=== PATIENT | male | born 1940 | race African-American/Black ===

== ENCOUNTER 2018-03-23 15:46 | Inpatient (IN) | payer OTHER ==
[2018-03-23 16:55] VITALS: BMI 37.1
--- NOTE | 2018-03-23 21:47 | HP ---
CIWA Score - Admission Criteria [facility] Guidelines: Admission for Medically Managed Detox: Requires at least one of the followin. CIWA greater than 12 2. Seizures within the past 24 hours 3. Delirium tremens within the past 24 hours 4. Hallucinations within the past 24 hours 5. Acute intervention needed for co occurring medical disorder 6. Acute intervention needed for co occurring psychiatric disorder 7. Severe withdrawal that cannot be handled at a lower level of care (continued vomiting, continued diarrhea, abnormal vital signs) requiring intravenous medication and/or fluids 8. Admission ROS S - HPI Chief Complaint: SEEKING REHAB FOR TRAMADOL DEPENDENCE AFTER 5 DAY HOSPITAL STAY Allergies/Adverse Reactions: Allergies Allergy/AdvReac Type Severity Reaction Status Date / Time No Known Allergies Allergy Verified 03/23/18 18:57 History of Present Illness: 77 Y.O. MALE WITH HX/O OPIOID DEPENDENCE HERE FOR OPIOID DEPENDENCE. CLIENT IS REFERRED BY [facility] AFTER BEING HOSPITALIZED FOR C/O BODY ACHES. CLIENT WAS BEING PRESCRIBED TRAMADOL FOR PAIN MGMT BUT WAS DC DURING HOSPITAL STAY FOR DEPENDENCE. HE WAS HOSPITALIZED FROM03/18/18-03/23/2018. HE IS KNOWN TO THIS PROGRAM . LAST HERE ABOUT 2 YEARS AGO. REPORTS LONGEST CLEAN TIME 2 YEARS. RELAPSING 6 MONTHS AGO. DENIES HX/O DRUG OVERDOSE, SI/HI, AVH, SEIZURE D/O. CURRENTLY LIVES ALONE IN AN APT, RETIRED, DENIES LEGALS. PMHX- COPD ON PRN HOME O2, HTN, DM, DVT/PE ON ELIQUIS, CHRONIC PAIN, HX/O RSV INFECTION PSYCH- DENIES Exam Limitations: Physical Impairment ([place] WITH A CANE DUE TO UNSTEADY GAIT) - Ebola screening Have you traveled outside of the country in the last 21 days: No Have you had contact with anyone from an Ebola affected area: No Have you been sick,other than usual withdrawal symptoms: No Do you have a fever: No - Review of Systems Constitutional: No Symptoms Reported EENT: reports: Dental Problems (DENTAL IMPLANTS) Respiratory: reports: No Symptoms reported Cardiac: reports: No Symptoms Reported GI: reports: Poor Appetite : reports: No Symptoms Reported Musculoskeletal: reports: Back Pain, Joint Pain Integumentary: reports: Other (DRY SKIN TO LLE) Neuro: reports: Weakness (BLE) Endocrine: reports: Other (HX/O DM) Hematology: reports: Blood Clots Psychiatric: reports: No Sypmtoms Reported, Orientated x3 Other Systems: Reviewed and Negative Patient History - Patient Medical History Hx Anemia: No Hx Asthma: No Hx Chronic Obstructive Pulmonary Disease (COPD): Yes (PRN O2) Hx Cancer: No Hx Cardiac Disorders: No Hx Congestive Heart Failure: No Hx Hypertension: Yes Hx Hypercholesterolemia: No Hx Seizures: No Hx Dementia: No Hx Diabetes: Yes Hx Gastrointestinal Disorders: No Hx Liver Disease: No Hx Genitourinary Disorders: No Hx Sexually Transmitted Disorders: No Hx Renal Disease (ESRD): No Hx Thyroid Disease: No Hx Human Immunodeficiency Virus (HIV): No Hx Hepatitis C: No Hx Depression: No Hx Suicide Attempt: No Hx Bipolar Disorder: No Hx Schizophrenia: No Other Medical History: DVT/PE ON ELIQUIS - Patient Surgical History Past Surgical History: Yes Hx Abdominal Surgery: Yes (, cholecystectomy ) Hx Cholecystectomy: Yes Hx Orthopedic Surgery: Yes (Bilateral hip replacements R in 2013 L in 2014) Anesthesia Reaction: No - PPD History Previous Implant?: Yes Documented Results: Negative w/proof Implanted On Prior R Admission?: Yes Date: 04/25/15 Results: 0MM PPD to be Administered?: Yes - Smoking Cessation Smoking history: Former smoker Have you smoked in the past 12 months: Yes Aproximately how many cigarettes per day: 20 If you are a former smoker, when did you quit?: 8/15 Cigars Per Day: 0 Hx Chewing Tobacco Use: No Initiated information on smoking cessation: No - Substance & Tx. History Hx Alcohol Use: Yes Hx Substance Use: Yes Substance Use Type: Opiates (TRAMADOL) Hx Substance Use Treatment: Yes ([facility]) - Substances Abused TRAMADOL Route: Oral Frequency: Daily Amount used: 150MG Age of first use: 76 Date of Last Use: 03/16/18 PERCOCET Route: Oral Frequency: Daily Amount used: 2 5/325MG Age of first use: 76 Date of Last Use: 09/26/17 Family Disease History - Family Disease History Family Disease History: Diabetes: Grandparent, Respiratory: Mother () Admission Physical Exam [facility] - Vital Signs Vital Signs: Vital Signs - 24 hr 03/23/18 16:52 Temperature 98.0 F Pulse Rate 111 H Respiratory 18 Rate Blood Pressure 129/71 - Physical General Appearance: Yes: No Apparent Distress, Appropriately Dressed, Obese HEENTM: Yes: EOMI, Normocephalic, Normal Voice, REZA, Pharynx Normal, Other ( MISSING TEETH) Respiratory: Yes: Chest Non-Tender, Lungs Clear, Normal Breath Sounds, No Respiratory Distress, No Accessory Muscle Use Neck: Yes: No masses,lesions,Nodules, Supple, Trachea in good position Breast: Yes: Breast Exam Deferred Cardiology: Yes: Regular Rhythm, Regular Rate, S1, S2 Abdominal: Yes: Normal Bowel Sounds, Non Tender, Soft, Protuberent Genitourinary: Yes: Other (NO C/O) Back: Yes: Normal Inspection Musculoskeletal: Yes: full range of Motion, Other (AMBULATES WITH CAN E DUE TO UNSTEADY GAIT) Extremities: Yes: Non-Tender, Other Neurological: Yes: Fully Oriented, Alert, Motor Strength 5/5 Integumentary: Yes: Dry, Warm, Other (LLE WITH HEALING ABRASION ALSO DRY HYPERPIGMENTATION OF SKIN) Lymphatic: Yes: Within Normal Limits - Diagnostic (1) Uncomplicated opioid dependence Current Visit: Yes Status: Chronic (2) Morbidly obese Current Visit: Yes Status: Chronic (3) COPD (chronic obstructive pulmonary disease) Current Visit: Yes Status: Chronic Qualifiers: COPD type: unspecified COPD Qualified Code(s): J44.9 - Chronic obstructive pulmonary disease, unspecified (4) HTN (hypertension) Current Visit: Yes Status: Chronic Qualifiers: Hypertension type: essential hypertension Qualified Code(s): I10 - Essential (primary) hypertension (5) History of DVT (deep vein thrombosis) Current Visit: Yes Status: Chronic (6) Unsteady gait Current Visit: Yes Status: Chronic (7) Ambulates without assistive device Current Visit: Yes Status: Chronic (8) DM (diabetes mellitus) Current Visit: Yes Status: Chronic Qualifiers: Diabetes mellitus type: type 2 Cleared for Admission [facility] - Detox or Rehab Detox Regimen/Protocol: Not Applicable Claeared for Rehab Admission: Yes [facility] Breath Alcohol Content Breath Alcohol Content: 0 Urine Drug Screen - Results Drug Screen Negative: Yes Inpatient Rehab Admission - Initial Determination Are CD services needed?: Yes Free of communicable disease: Yes Not in need of hospitalization: Yes - Rehab Admission Criteria Previous failed treatment: Yes Poor recovery environment: Yes Comorbidities: Yes Lacks judgement: No Patient is meeting Inpatient Rehab admission criteria:: Yes
[2018-03-23] MEDS ORDERED: MAGNESIUM HYDROX 2400MG/30ML ORAL SUSPENSION 30 ML CUP PO PRN (22:08)
[2018-03-23] MEDS ORDERED: guaiFENesin/D-METHORPHAN HB 10 ML UNIT-DOSE CUPS PO PRN (22:08)
[2018-03-23] MEDS ORDERED: hydrOXYzine PAMOATE 50 MG CAPSULE (FP) PO PRN (22:08)
[2018-03-23] MEDS ORDERED: ACETAMINOPHEN 325 MG TABLET (FP) PO PRN (22:08)
[2018-03-23] MEDS ORDERED: MAGNESIUM CITRATE 300 ML BOTTLE PO PRN (22:08)
[2018-03-23] MEDS ORDERED: MENTHOL/PHENOL 1 EACH UD MM PRN (22:08)
[2018-03-23] MEDS ORDERED: LOPERAMIDE HCL 2 MG CAPSULE PO PRN (22:08)
[2018-03-23] MEDS ORDERED: P-EPHED 60MG/TRIPROLIDI 2.5MG TABLET PO PRN (22:08)
[2018-03-24] MEDS: IBUPROFEN 400 MG TABLET (FP) PO PRN ×2 (01:04→09:42)
[2018-03-24] MEDS: GABAPENTIN 400 MG CAPSULE (FP) PO SCH ×3 (06:37→21:02)
[2018-03-24] MEDS: MAG HYDROX/AL HYDROX/SIMETH 30 ML UNIT-DOSE CUP PO PRN (06:38)
[2018-03-24] MEDS: metFORMIN HCL 500 MG TABLET (FP) PO SCH (07:32)
[2018-03-24] MEDS: PRENATAL VITAMINS W/ FOLIC ACID TABLET (FP) PO SCH (09:35)
[2018-03-24] MEDS: APIXABAN 5 MG TABLET PO SCH ×2 (09:35→21:02)
[2018-03-24] MEDS: FUROSEMIDE 40 MG TABLET (FP) PO SCH (09:35)
[2018-03-24] MEDS: amLODIPine BESYLATE 5 MG TABLET (FP) PO SCH (09:36)
[2018-03-24] MEDS: BUDESONIDE/FORMETEROL FUMARATE 160/4.5 mcg INHALER IH SCH ×2 (09:38→21:02)
[2018-03-24] MEDS ORDERED: DULoxetine HCL 60 MG CAPSULE.DR PO SCH (10:00)
[2018-03-24 11:08] LABS: HEMOGLOBIN 12.9 GM/dL (11.7-16.9); MCH 28.7 pg (25.7-33.7); MCHC 33.1 g/dl (32.0-35.9); MEAN CELL VOLUME 86.9 fl (80-96); MEAN PLT VOLUME 7.9 fl (7.5-11.1); PLATELET COUNT 265 K/MM3 (134-434); RBC 4.49 M/mm3 (4.00-5.60); WHITE BLOOD COUNT 9.4 K/mm3 (4.0-10.0)
[2018-03-24 11:12] LABS: URINE APPEARANCE CLEAR; URINE BILIRUBIN NEGATIVE (<2.0 mg/dL); URINE COLOR YELLOW; URINE GLUCOSE (UA) NEGATIVE (NEGATIVE); URINE KETONE NEGATIVE (NEGATIVE); URINE LEUK ESTERASE NEGATIVE (NEGATIVE); URINE NITRITE NEGATIVE (NEGATIVE); URINE PROTEIN NEGATIVE (NEGATIVE); URINE UROBILINOGEN NEGATIVE mg/dL (0.2-1.0)
[2018-03-24] MEDS: DULOXETINE HCL PO SCH (11:16)
[2018-03-24] MEDS: ALBUTEROL SO4 8 GM HFA INHALER IH SCH (11:17)
[2018-03-24 11:28] LABS: ALBUMIN 3.4 g/dl (3.4-5.0); ALK PHOS 94 U/L (45-117); ANION GAP 6 MMOL/L (8-16); BILIRUBIN,TOTAL 0.5 mg/dL (0.2-1); BLOOD UREA NITROGEN 19 mg/dL (7-18); CALCIUM 8.6 mg/dL (8.5-10.1); CHLORIDE 104 mmol/L (98-107); CO2 29 mmol/L (21-32); CREATININE 1.2 mg/dL (0.55-1.3); GLUCOSE,RANDOM 113 mg/dL (74-106); POTASSIUM 4.1 mmol/L (3.5-5.1); SGOT/AST 13 U/L (15-37); SGPT/ALT 18 U/L (13-61); SODIUM 139 mmol/L (136-145); TOT PROT 7.2 g/dl (6.4-8.2)
--- NOTE | 2018-03-24 12:39 | PN ---
[facility] Progress Note Note: patient requests symethicon for gas as maalox not effective - same Rx, monitor for effect
[2018-03-24] MEDS: SIMETHICONE 80 MG TAB.CHEW (FP) PO PRN (14:38)
[2018-03-24] MEDS: THIAMINE HCL 100 MG TABLET (FP) PO SCH (21:02)
[2018-03-25] MEDS: GABAPENTIN 400 MG CAPSULE (FP) PO SCH ×3 (06:42→21:03)
[2018-03-25] MEDS: metFORMIN HCL 500 MG TABLET (FP) PO SCH (06:42)
[2018-03-25] MEDS: SIMETHICONE 80 MG TAB.CHEW (FP) PO PRN ×3 (06:43→21:04)
[2018-03-25] MEDS: amLODIPine BESYLATE 5 MG TABLET (FP) PO SCH (09:35)
[2018-03-25] MEDS: FUROSEMIDE 40 MG TABLET (FP) PO SCH (09:35)
[2018-03-25] MEDS: APIXABAN 5 MG TABLET PO SCH ×2 (09:36→21:03)
[2018-03-25] MEDS: DULOXETINE HCL PO SCH (09:36)
[2018-03-25] MEDS: PRENATAL VITAMINS W/ FOLIC ACID TABLET (FP) PO SCH (09:37)
[2018-03-25] MEDS: BUDESONIDE/FORMETEROL FUMARATE 160/4.5 mcg INHALER IH SCH ×2 (09:38→21:05)
[2018-03-25] MEDS: ALBUTEROL SO4 8 GM HFA INHALER IH SCH (09:39)
[2018-03-25] MEDS: IBUPROFEN 400 MG TABLET (FP) PO PRN (21:03)
[2018-03-25] MEDS: THIAMINE HCL 100 MG TABLET (FP) PO SCH (21:03)
[2018-03-26] MEDS: GABAPENTIN 400 MG CAPSULE (FP) PO SCH ×3 (06:26→21:05)
[2018-03-26] MEDS: IBUPROFEN 400 MG TABLET (FP) PO PRN ×2 (06:26→21:06)
[2018-03-26] MEDS: metFORMIN HCL 500 MG TABLET (FP) PO SCH (06:26)
[2018-03-26] MEDS: MAG HYDROX/AL HYDROX/SIMETH 30 ML UNIT-DOSE CUP PO PRN (06:27)
[2018-03-26] MEDS: SIMETHICONE 80 MG TAB.CHEW (FP) PO PRN ×3 (06:28→21:08)
[2018-03-26] MEDS: APIXABAN 5 MG TABLET PO SCH ×2 (10:00→21:05)
[2018-03-26] MEDS: amLODIPine BESYLATE 5 MG TABLET (FP) PO SCH (10:00)
[2018-03-26] MEDS: PRENATAL VITAMINS W/ FOLIC ACID TABLET (FP) PO SCH (10:01)
[2018-03-26] MEDS: FUROSEMIDE 40 MG TABLET (FP) PO SCH (10:01)
[2018-03-26] MEDS: ALBUTEROL SO4 8 GM HFA INHALER IH SCH (10:04)
[2018-03-26] MEDS: BUDESONIDE/FORMETEROL FUMARATE 160/4.5 mcg INHALER IH SCH ×2 (10:04→21:07)
[2018-03-26] MEDS: DULOXETINE HCL PO SCH (11:32)
[2018-03-26] MEDS: THIAMINE HCL 100 MG TABLET (FP) PO SCH (21:05)
[2018-03-26] MEDS: MELATONIN 5 MG TABLETS PO PRN (21:06)
[2018-03-27] MEDS: metFORMIN HCL 500 MG TABLET (FP) PO SCH (06:15)
[2018-03-27] MEDS: SIMETHICONE 80 MG TAB.CHEW (FP) PO PRN ×2 (06:17→21:48)
[2018-03-27] MEDS: GABAPENTIN 400 MG CAPSULE (FP) PO SCH ×3 (06:18→21:49)
[2018-03-27] MEDS: MAG HYDROX/AL HYDROX/SIMETH 30 ML UNIT-DOSE CUP PO PRN (06:18)
[2018-03-27] MEDS: IBUPROFEN 400 MG TABLET (FP) PO PRN (06:20)
[2018-03-27] MEDS: PRENATAL VITAMINS W/ FOLIC ACID TABLET (FP) PO SCH (10:11)
[2018-03-27] MEDS: amLODIPine BESYLATE 5 MG TABLET (FP) PO SCH (10:12)
[2018-03-27] MEDS: APIXABAN 5 MG TABLET PO SCH ×2 (10:12→21:48)
[2018-03-27] MEDS: FUROSEMIDE 40 MG TABLET (FP) PO SCH (10:13)
[2018-03-27] MEDS: BUDESONIDE/FORMETEROL FUMARATE 160/4.5 mcg INHALER IH SCH ×2 (10:13→21:50)
[2018-03-27] MEDS: ALBUTEROL SO4 8 GM HFA INHALER IH SCH (10:16)
[2018-03-27] MEDS: DULOXETINE HCL PO SCH (10:18)
--- NOTE | 2018-03-27 12:35 | PN ---
[facility] Progress Note Note: PT C/O GENERALIZED BODY PAIN AND KNEE PAIN BUT DENIES ARTHRITIS(SAYS "I HAVE CLEAN KNEES IT'S DUE TO MY WT BEARING DOWN ON MY KNEES"). PT REPORTS JEAN CARLOS. HIP REPLACEMENT IN 2018 AND DVT LEFT LEG A YEAR AGO. DENIES BACK PAIN. STATES HE HAS A PMD, DR. LENNIE SHERMAN ON [place], [place]. PT OOB AMBULATING WITH CANE. Vital Signs 03/27/18 03/27/18 06:42 10:00 Temperature 97.3 F L Pulse Rate 85 92 H Respiratory 19 Rate Blood Pressure 149/78 124/63 Laboratory Tests 03/23/18 03/24/18 03/24/18 23:40 06:39 07:50 WBC 9.4 RBC 4.49 Hgb 12.9 Hct 39.0 MCV 86.9 MCH 28.7 D MCHC 33.1 RDW 17.0 H Plt Count 265 MPV 7.9 Sodium Potassium Chloride Carbon Dioxide Anion Gap BUN Creatinine Creat Clearance w eGFR POC Glucometer 87 111 Random Glucose Calcium Total Bilirubin AST ALT Alkaline Phosphatase Total Protein Albumin Urine Color Urine Appearance Urine pH Ur Specific [place] Urine Protein Urine Glucose (UA) Urine Ketones Urine Blood Urine Nitrite Urine Bilirubin Urine Urobilinogen Ur Leukocyte Esterase RPR Titer 03/24/18 03/24/18 03/24/18 07:50 07:50 08:50 WBC RBC Hgb Hct MCV MCH MCHC RDW Plt Count MPV Sodium 139 Potassium 4.1 Chloride 104 Carbon Dioxide 29 Anion Gap 6 L BUN 19 H Creatinine 1.2 Creat Clearance w eGFR 58.86 POC Glucometer Random Glucose 113 H Calcium 8.6 Total Bilirubin 0.5 AST 13 L ALT 18 Alkaline Phosphatase 94 Total Protein 7.2 Albumin 3.4 Urine Color Yellow Urine Appearance Clear Urine pH 6.0 Ur Specific [place] 1.023 Urine Protein Negative Urine Glucose (UA) Negative Urine Ketones Negative Urine Blood Negative Urine Nitrite Negative Urine Bilirubin Negative Urine Urobilinogen Negative Ur Leukocyte Esterase Negative RPR Titer Nonreactive 03/25/18 03/26/18 03/27/18 06:41 06:24 06:15 WBC RBC Hgb Hct MCV MCH MCHC RDW Plt Count MPV Sodium Potassium Chloride Carbon Dioxide Anion Gap BUN Creatinine Creat Clearance w eGFR POC Glucometer 98 129 98 Random Glucose Calcium Total Bilirubin AST ALT Alkaline Phosphatase Total Protein Albumin Urine Color Urine Appearance Urine pH Ur Specific [place] Urine Protein Urine Glucose (UA) Urine Ketones Urine Blood Urine Nitrite Urine Bilirubin Urine Urobilinogen Ur Leukocyte Esterase RPR Titer NAD PLAN:D/C IBUPROFEN FLEXERIL 10 MG PO TID PRN
[2018-03-27] MEDS: CYCLOBENZAPRINE HCL 10 MG TABLET (FP) PO PRN (14:47)
[2018-03-27] MEDS: THIAMINE HCL 100 MG TABLET (FP) PO SCH (21:48)
[2018-03-27] MEDS: MELATONIN 5 MG TABLETS PO PRN (21:49)
[2018-03-28] MEDS: SIMETHICONE 80 MG TAB.CHEW (FP) PO PRN ×3 (06:40→21:53)
[2018-03-28] MEDS: CYCLOBENZAPRINE HCL 10 MG TABLET (FP) PO PRN ×2 (06:40→21:51)
[2018-03-28] MEDS: GABAPENTIN 400 MG CAPSULE (FP) PO SCH ×3 (06:40→21:50)
[2018-03-28] MEDS: metFORMIN HCL 500 MG TABLET (FP) PO SCH (06:43)
[2018-03-28] MEDS: amLODIPine BESYLATE 5 MG TABLET (FP) PO SCH (10:55)
[2018-03-28] MEDS: PRENATAL VITAMINS W/ FOLIC ACID TABLET (FP) PO SCH (10:55)
[2018-03-28] MEDS: APIXABAN 5 MG TABLET PO SCH ×2 (10:56→21:50)
[2018-03-28] MEDS: FUROSEMIDE 40 MG TABLET (FP) PO SCH (10:56)
[2018-03-28] MEDS: BUDESONIDE/FORMETEROL FUMARATE 160/4.5 mcg INHALER IH SCH ×2 (10:57→21:51)
[2018-03-28] MEDS: ALBUTEROL SO4 8 GM HFA INHALER IH SCH (10:58)
[2018-03-28] MEDS: DULOXETINE HCL PO SCH (10:58)
[2018-03-28] MEDS: AMMONIUM LACTATE 12% LOTION 225 GM BOTTLE TP SCH (14:27)
[2018-03-28] MEDS: THIAMINE HCL 100 MG TABLET (FP) PO SCH (21:50)
[2018-03-29] MEDS: CYCLOBENZAPRINE HCL 10 MG TABLET (FP) PO PRN (06:56)
[2018-03-29] MEDS: SIMETHICONE 80 MG TAB.CHEW (FP) PO PRN (06:56)
[2018-03-29] MEDS: metFORMIN HCL 500 MG TABLET (FP) PO SCH (06:56)
[2018-03-29] MEDS: GABAPENTIN 400 MG CAPSULE (FP) PO SCH ×3 (06:56→21:46)
[2018-03-29] MEDS: APIXABAN 5 MG TABLET PO SCH ×2 (10:23→21:46)
[2018-03-29] MEDS: PRENATAL VITAMINS W/ FOLIC ACID TABLET (FP) PO SCH (10:23)
[2018-03-29] MEDS: BUDESONIDE/FORMETEROL FUMARATE 160/4.5 mcg INHALER IH SCH ×2 (10:24→21:46)
[2018-03-29] MEDS: amLODIPine BESYLATE 5 MG TABLET (FP) PO SCH (10:24)
[2018-03-29] MEDS: FUROSEMIDE 40 MG TABLET (FP) PO SCH (10:24)
[2018-03-29] MEDS: DULOXETINE HCL PO SCH (10:25)
[2018-03-29] MEDS: ALBUTEROL SO4 8 GM HFA INHALER IH SCH (10:25)
[2018-03-29] MEDS: AMMONIUM LACTATE 12% LOTION 225 GM BOTTLE TP SCH (10:26)
[2018-03-29] MEDS: MELATONIN 5 MG TABLETS PO PRN (21:45)
[2018-03-29] MEDS: THIAMINE HCL 100 MG TABLET (FP) PO SCH (21:46)
[2018-03-30] MEDS: metFORMIN HCL 500 MG TABLET (FP) PO SCH (06:26)
[2018-03-30] MEDS: SIMETHICONE 80 MG TAB.CHEW (FP) PO PRN ×2 (06:26→21:46)
[2018-03-30] MEDS: CYCLOBENZAPRINE HCL 10 MG TABLET (FP) PO PRN ×2 (06:26→21:46)
[2018-03-30] MEDS: GABAPENTIN 400 MG CAPSULE (FP) PO SCH ×3 (06:26→21:43)
[2018-03-30] MEDS: PRENATAL VITAMINS W/ FOLIC ACID TABLET (FP) PO SCH (10:34)
[2018-03-30] MEDS: amLODIPine BESYLATE 5 MG TABLET (FP) PO SCH (10:34)
[2018-03-30] MEDS: APIXABAN 5 MG TABLET PO SCH ×2 (10:34→21:43)
[2018-03-30] MEDS: FUROSEMIDE 40 MG TABLET (FP) PO SCH (10:35)
[2018-03-30] MEDS: BUDESONIDE/FORMETEROL FUMARATE 160/4.5 mcg INHALER IH SCH ×2 (10:36→21:46)
[2018-03-30] MEDS: ALBUTEROL SO4 8 GM HFA INHALER IH SCH (10:37)
[2018-03-30] MEDS: DULOXETINE HCL PO SCH (10:38)
[2018-03-30] MEDS: AMMONIUM LACTATE 12% LOTION 225 GM BOTTLE TP SCH (10:38)
[2018-03-30] MEDS: THIAMINE HCL 100 MG TABLET (FP) PO SCH (21:44)
[2018-03-30] MEDS: MELATONIN 5 MG TABLETS PO PRN (21:54)
[2018-03-31] MEDS: GABAPENTIN 400 MG CAPSULE (FP) PO SCH ×3 (06:30→21:41)
[2018-03-31] MEDS: metFORMIN HCL 500 MG TABLET (FP) PO SCH (06:30)
[2018-03-31] MEDS: SIMETHICONE 80 MG TAB.CHEW (FP) PO PRN ×2 (06:30→21:41)
[2018-03-31] MEDS: amLODIPine BESYLATE 5 MG TABLET (FP) PO SCH (10:32)
[2018-03-31] MEDS: BUDESONIDE/FORMETEROL FUMARATE 160/4.5 mcg INHALER IH SCH ×2 (10:32→21:42)
[2018-03-31] MEDS: PRENATAL VITAMINS W/ FOLIC ACID TABLET (FP) PO SCH (10:32)
[2018-03-31] MEDS: FUROSEMIDE 40 MG TABLET (FP) PO SCH (10:32)
[2018-03-31] MEDS: APIXABAN 5 MG TABLET PO SCH ×2 (10:32→21:41)
[2018-03-31] MEDS: DULOXETINE HCL PO SCH (10:35)
[2018-03-31] MEDS: AMMONIUM LACTATE 12% LOTION 225 GM BOTTLE TP SCH (10:35)
[2018-03-31] MEDS: ALBUTEROL SO4 8 GM HFA INHALER IH SCH (10:36)
[2018-03-31] MEDS: MELATONIN 5 MG TABLETS PO PRN (21:41)
[2018-03-31] MEDS: THIAMINE HCL 100 MG TABLET (FP) PO SCH (21:41)
[2018-04-01] MEDS: metFORMIN HCL 500 MG TABLET (FP) PO SCH (06:33)
[2018-04-01] MEDS: SIMETHICONE 80 MG TAB.CHEW (FP) PO PRN ×2 (06:33→21:37)
[2018-04-01] MEDS: GABAPENTIN 400 MG CAPSULE (FP) PO SCH ×3 (06:33→21:37)
[2018-04-01] MEDS: BUDESONIDE/FORMETEROL FUMARATE 160/4.5 mcg INHALER IH SCH ×2 (10:03→21:38)
[2018-04-01] MEDS: PRENATAL VITAMINS W/ FOLIC ACID TABLET (FP) PO SCH (10:03)
[2018-04-01] MEDS: AMMONIUM LACTATE 12% LOTION 225 GM BOTTLE TP SCH (10:04)
[2018-04-01] MEDS: APIXABAN 5 MG TABLET PO SCH ×2 (10:04→21:37)
[2018-04-01] MEDS: amLODIPine BESYLATE 5 MG TABLET (FP) PO SCH (10:04)
[2018-04-01] MEDS: DULOXETINE HCL PO SCH (10:04)
[2018-04-01] MEDS: FUROSEMIDE 40 MG TABLET (FP) PO SCH (10:04)
[2018-04-01] MEDS: ALBUTEROL SO4 8 GM HFA INHALER IH SCH (10:05)
[2018-04-01] MEDS: THIAMINE HCL 100 MG TABLET (FP) PO SCH (21:36)
[2018-04-01] MEDS: MELATONIN 5 MG TABLETS PO PRN (21:36)
[2018-04-01] MEDS: MAG HYDROX/AL HYDROX/SIMETH 30 ML UNIT-DOSE CUP PO PRN (21:38)
[2018-04-02] MEDS: GABAPENTIN 400 MG CAPSULE (FP) PO SCH ×3 (06:33→21:41)
[2018-04-02] MEDS: metFORMIN HCL 500 MG TABLET (FP) PO SCH (06:34)
[2018-04-02] MEDS: amLODIPine BESYLATE 5 MG TABLET (FP) PO SCH (10:34)
[2018-04-02] MEDS: APIXABAN 5 MG TABLET PO SCH ×2 (10:34→21:41)
[2018-04-02] MEDS: PRENATAL VITAMINS W/ FOLIC ACID TABLET (FP) PO SCH (10:34)
[2018-04-02] MEDS: FUROSEMIDE 40 MG TABLET (FP) PO SCH (10:37)
[2018-04-02] MEDS: AMMONIUM LACTATE 12% LOTION 225 GM BOTTLE TP SCH (10:38)
[2018-04-02] MEDS: ALBUTEROL SO4 8 GM HFA INHALER IH SCH (10:39)
[2018-04-02] MEDS: BUDESONIDE/FORMETEROL FUMARATE 160/4.5 mcg INHALER IH SCH ×2 (10:39→21:44)
[2018-04-02] MEDS: SIMETHICONE 80 MG TAB.CHEW (FP) PO PRN (10:40)
[2018-04-02] MEDS: DULOXETINE HCL PO SCH (12:08)
[2018-04-02] MEDS: THIAMINE HCL 100 MG TABLET (FP) PO SCH (21:41)
[2018-04-02] MEDS: MELATONIN 5 MG TABLETS PO PRN (21:44)
[2018-04-02] MEDS: CYCLOBENZAPRINE HCL 10 MG TABLET (FP) PO PRN (21:44)
[2018-04-03] MEDS: metFORMIN HCL 500 MG TABLET (FP) PO SCH (06:27)
[2018-04-03] MEDS: GABAPENTIN 400 MG CAPSULE (FP) PO SCH (06:27)
[2018-04-03] MEDS: SIMETHICONE 80 MG TAB.CHEW (FP) PO PRN (06:27)
[2018-04-03 06:59] VITALS: BP 140/64; PULSE 84; TEMP 98
[2018-04-03] MEDS: APIXABAN 5 MG TABLET PO SCH (09:28)
[2018-04-03] MEDS: DULOXETINE HCL PO SCH (09:28)
[2018-04-03] MEDS: BUDESONIDE/FORMETEROL FUMARATE 160/4.5 mcg INHALER IH SCH (09:28)
[2018-04-03] MEDS: AMMONIUM LACTATE 12% LOTION 225 GM BOTTLE TP SCH (09:28)
[2018-04-03] MEDS: ALBUTEROL SO4 8 GM HFA INHALER IH SCH (09:29)
[2018-04-03] MEDS: PRENATAL VITAMINS W/ FOLIC ACID TABLET (FP) PO SCH (09:29)
[2018-04-03] MEDS: amLODIPine BESYLATE 5 MG TABLET (FP) PO SCH (09:29)
[2018-04-03] MEDS: FUROSEMIDE 40 MG TABLET (FP) PO SCH (09:29)
--- NOTE | 2018-04-03 15:35 | PN ---
S Progress Note Note: REHAB DISCHARGE NOTE; PT COMPLETED REHAB TODAY. PT HAS BEEN REFERRED TO AFTERCARE AT [facility] OPD; DR FELIX MARMOLEJO AT [address] [place] [address] FOR ORTHOPEDICS; AND PAIN MANAGEMENT AT [facility] AO [address] [place] [address] WELL PHYSICAL THERAPY AT SAME LOCATION. PT REPORTS HE HAS ALL HIS MEDICATIONS AT HOME AND NEEDS [facility] RX FOR CYMBALTA FOR 2 WEEKS TILL HE GETS TO HIS PCP. RX CYMBALTA 90 MG PO DAILY #14 ELECTRONICALLY SENT TO PATIENT'S PHARMACY FOR [facility]. Vital Signs - 24 hr 04/03/18 04/03/18 04/03/18 00:30 03:30 06:58 Temperature 98.0 F Pulse Rate 84 Respiratory 18 18 20 Rate Blood Pressure 140/64 Laboratory Tests 03/23/18 03/24/18 03/24/18 23:40 06:39 07:50 WBC 9.4 RBC 4.49 Hgb 12.9 Hct 39.0 MCV 86.9 MCH 28.7 D MCHC 33.1 RDW 17.0 H Plt Count 265 MPV 7.9 Sodium Potassium Chloride Carbon Dioxide Anion Gap BUN Creatinine Creat Clearance w eGFR POC Glucometer 87 111 Random Glucose Calcium Total Bilirubin AST ALT Alkaline Phosphatase Total Protein Albumin Urine Color Urine Appearance Urine pH Ur Specific [place] Urine Protein Urine Glucose (UA) Urine Ketones Urine Blood Urine Nitrite Urine Bilirubin Urine Urobilinogen Ur Leukocyte Esterase RPR Titer 03/24/18 03/24/18 03/24/18 07:50 07:50 08:50 WBC RBC Hgb Hct MCV MCH MCHC RDW Plt Count MPV Sodium 139 Potassium 4.1 Chloride 104 Carbon Dioxide 29 Anion Gap 6 L BUN 19 H Creatinine 1.2 Creat Clearance w eGFR 58.86 POC Glucometer Random Glucose 113 H Calcium 8.6 Total Bilirubin 0.5 AST 13 L ALT 18 Alkaline Phosphatase 94 Total Protein 7.2 Albumin 3.4 Urine Color Yellow Urine Appearance Clear Urine pH 6.0 Ur Specific [place] 1.023 Urine Protein Negative Urine Glucose (UA) Negative Urine Ketones Negative Urine Blood Negative Urine Nitrite Negative Urine Bilirubin Negative Urine Urobilinogen Negative Ur Leukocyte Esterase Negative RPR Titer Nonreactive 03/25/18 03/26/18 03/27/18 06:41 06:24 06:15 WBC RBC Hgb Hct MCV MCH MCHC RDW Plt Count MPV Sodium Potassium Chloride Carbon Dioxide Anion Gap BUN Creatinine Creat Clearance w eGFR POC Glucometer 98 129 98 Random Glucose Calcium Total Bilirubin AST ALT Alkaline Phosphatase Total Protein Albumin Urine Color Urine Appearance Urine pH Ur Specific [place] Urine Protein Urine Glucose (UA) Urine Ketones Urine Blood Urine Nitrite Urine Bilirubin Urine Urobilinogen Ur Leukocyte Esterase RPR Titer 03/28/18 03/29/18 03/30/18 06:42 06:55 06:24 WBC RBC Hgb Hct MCV MCH MCHC RDW Plt Count MPV Sodium Potassium Chloride Carbon Dioxide Anion Gap BUN Creatinine Creat Clearance w eGFR POC Glucometer 103 93 96 Random Glucose Calcium Total Bilirubin AST ALT Alkaline Phosphatase Total Protein Albumin Urine Color Urine Appearance Urine pH Ur Specific [place] Urine Protein Urine Glucose (UA) Urine Ketones Urine Blood Urine Nitrite Urine Bilirubin Urine Urobilinogen Ur Leukocyte Esterase RPR Titer 03/31/18 04/01/18 04/02/18 06:27 06:30 06:32 WBC RBC Hgb Hct MCV MCH MCHC RDW Plt Count MPV Sodium Potassium Chloride Carbon Dioxide Anion Gap BUN Creatinine Creat Clearance w eGFR POC Glucometer 128 100 103 Random Glucose Calcium Total Bilirubin AST ALT Alkaline Phosphatase Total Protein Albumin Urine Color Urine Appearance Urine pH Ur Specific [place] Urine Protein Urine Glucose (UA) Urine Ketones Urine Blood Urine Nitrite Urine Bilirubin Urine Urobilinogen Ur Leukocyte Esterase RPR Titer 04/03/18 06:25 WBC RBC Hgb Hct MCV MCH MCHC RDW Plt Count MPV Sodium Potassium Chloride Carbon Dioxide Anion Gap BUN Creatinine Creat Clearance w eGFR POC Glucometer 114 Random Glucose Calcium Total Bilirubin AST ALT Alkaline Phosphatase Total Protein Albumin Urine Color Urine Appearance Urine pH Ur Specific [place] Urine Protein Urine Glucose (UA) Urine Ketones Urine Blood Urine Nitrite Urine Bilirubin Urine Urobilinogen Ur Leukocyte Esterase RPR Titer NAD PLAN:FOLLOW UP WITH CD AFTERCARE RECOMMENDED ON 04/04/18. FOLLOW UP WITHPCP IN 2 WEEKS. CALL AND FOLLOW UP WITH PAIN MANAGEMENT AND PHYSICAL THERAPY.
== END 2018-04-03 10:15 | disposition home or self-care (01) | DRG 895 ==
LOC: YASAS 15:46 → Y5N 18:01
PROVIDERS: ADMIT Psychiatry & Neurology Psychiatry; ATTEND Psychiatry & Neurology Psychiatry
PROC: HZ42ZZZ Group Counseling for Substance Abuse Treatment, Cognitive-Behavioral (ICD-10-PCS; principal; 2018-03-23)
DX: F11.20 Opioid dependence, uncomplicated (principal); I10 Essential (primary) hypertension; E11.9 Type 2 diabetes mellitus without complications; J44.9 Chronic obstructive pulmonary disease, unspecified; R26.81 Unsteadiness on feet; E66.01 Morbid (severe) obesity due to excess calories; Z68.37 Body mass index [BMI] 37.0-37.9, adult; Z86.718 Personal history of other venous thrombosis and embolism; Z99.89 Dependence on other enabling machines and devices; Z96.643 Presence of artificial hip joint, bilateral
CPT/HCPCS: 36415; 80053; 81003; 82962; 85027; 86593